=== PATIENT | male | born 1950 | race Caucasian/White ===

== ENCOUNTER 2016-10-29 07:48 | Day surgery (SDC) | payer OTHER ==
[~2016-10-29] VITALS: Ht 188 cm; Wt 100.0 kg
[~2016-10-29 07:48] MED LIST: FLOMAX0.4 MG PO; FLUOXETINE HCL20 M1 PO; FLUOXETINE HCL20 MG PO; HYDROCODON-ACE1 EAC7 PO; OMEPRAZOLE40 M1 PO; RAPAFLO8 MG PO; TAMSULOSIN HCL0.4 MG PO; TOPIRAMATE50 MG PO
[2016-10-29 08:16] VITALS: BP 136/71
[2016-10-29 11:02] VITALS: BP 135/65
== END 2016-10-29 13:27 | disposition home or self-care (01) ==
LOC: SDC
PROC: 0TJ98ZZ Inspection of Ureter, Via Natural or Artificial Opening Endoscopic (ICD-10-PCS; principal; 2016-10-29)
PROC: 0T778DZ Dilation of Left Ureter with Intraluminal Device, Via Natural or Artificial Opening Endoscopic (ICD-10-PCS; principal; 2016-10-29)
DX: N20.1 Calculus of ureter (principal); Z87.442 Personal history of urinary calculi; K21.9 Gastro-esophageal reflux disease without esophagitis; I49.9 Cardiac arrhythmia, unspecified
CPT/HCPCS: 74420; J0690; J1100; J1170; J2405; J3010